=== PATIENT | male | born 1990 | race Caucasian/White ===

== ENCOUNTER 2017-01-14 18:18 | Emergency (ER) | payer BC ==
[2017-01-14 18:45] VITALS: BP 136/69
[2017-01-14] MEDS ORDERED: Ketorolac INJ* 30 MG/ML 1 ML VIAL IM ONE (19:52)
--- NOTE | 2017-01-14 20:01 | UC ---
Back Pain HPI - HPI Summary HPI Summary: Patient lifted a heavy object had a increase in pain on the left lumbar region. leary not radiate, no swelling. Patients ROM is painful in flexion but is full. - History of Current Complaint Chief Complaint: UCBackPain Stated Complaint: BACK PAIN Time Seen by Provider: 01/14/17 19:44 Hx Obtained From: Patient Onset/Duration: Sudden Onset, Lasting Hours Timing: Constant Severity Initially: Moderate Severity Currently: Moderate Back Pain: Is Discrete @ - left lumbar Character: Aching, Spasmodic Aggravating: Movement Alleviating: Nothing - Risk Factors AAA Risk Factors: Negative TAD Risk Factors: Negative - Allergies/Home Medications Allergies/Adverse Reactions: Allergies Allergy/AdvReac Type Severity Reaction Status Date / Time No Known Allergies Allergy Verified 01/14/17 18:45 Home Medications: Home Medications Ibuprofen TAB* [Advil TAB*] 400 mg PO Q6H PRN 01/14/17 [History Confirmed ] PMH/Surg Hx/FS Hx/Imm Hx Previously Healthy: Yes Endocrine History Of: Denies: Diabetes, Thyroid Disease Cardiovascular History Of: Denies: Cardiac Disorders, Hypertension Respiratory History Of: Reports: Asthma Denies: COPD GI/ History Of: Denies: Ulcer - Surgical History Surgical History: Yes Surgery Procedure, Year, and Place: left knee, right leg with metal plate and screws near ankle - Family History Known Family History: Positive: None Negative: Cardiac Disease, Hypertension - Social History Alcohol Use: Occasionally Alcohol Amount: 4-6 Substance Use Type: None Smoking Status (MU): Heavy Every Day Tobacco Smoker Review of Systems Constitutional: Negative Skin: Negative Eyes: Negative ENT: Negative Respiratory: Negative Cardiovascular: Negative Gastrointestinal: Negative Genitourinary: Negative Motor: Negative Neurovascular: Negative Musculoskeletal: Myalgia Neurological: Negative Psychological: Negative All Other Systems Reviewed And Are Negative: Yes Physical Exam Triage Information Reviewed: Yes Appearance: Well-Appearing, Well-Nourished, Pain Distress Vital Signs: Initial Vital Signs Temp 99.1 F 01/14/17 18:35 Pulse 94 01/14/17 18:35 Resp 18 01/14/17 18:35 BP 136/69 01/14/17 18:35 Vital Signs Reviewed: Yes Eye Exam: Normal Eyes: Positive: Conjunctiva Clear ENT Exam: Normal ENT: Positive: Normal ENT inspection, Hearing grossly normal, Pharynx normal, TMs normal Dental Exam: Normal Neck exam: Normal Neck: Positive: Supple, Nontender, No Lymphadenopathy Respiratory Exam: Normal Respiratory: Positive: Chest non-tender, Lungs clear, Normal breath sounds Cardiovascular Exam: Normal Cardiovascular: Positive: RRR, No Murmur, Pulses Normal Abdominal Exam: Normal Abdomen Description: Positive: Nontender, No Organomegaly, Soft Bowel Sounds: Positive: Present Musculoskeletal Exam: Normal Musculoskeletal: Positive: Strength Intact, ROM Intact - range of motion is full pain occurs at end of flexion, hypertonicity noted in left side of lumbar spine. able to stand on one foot at a time. gait is normal and no deformity, or step off noted over the spine. Neurological Exam: Normal Psychological Exam: Normal Skin Exam: Normal Back Pain Course/Dx - Course Course Of Treatment: hx obtained, exam performed, med given for pain, educated on stretches and treatment of muscle strain - Differential Dx/Diagnosis Differential Diagnosis/HQI/PQRI: Herniated Disc, Strain, Sprain Provider Diagnoses: low back pain. warts Discharge - Discharge Plan Condition: Stable Disposition: HOME Patient Education Materials: Muscle Strain (ED), Lower Back Exercises (ED) Referrals: BRIGIDA Garza [Primary Care Provider] - Additional Instructions: Continue with ibuprofen tomorrow as needed for pain. You received a toradol shot , do not take any advil or aleve until 4 am. heat or ice as tolerated Mild stretching and refer to the low back exercises to help relieve the low back pain.
[2017-01-14] MEDS ORDERED: Cyclobenzaprine TAB* 10 MG PO ONE (20:53)
--- NOTE | 2017-01-14 21:07 | RAD ---
INDICATION: Back pain COMPARISON: None TECHNIQUE: Routine PA, lateral, and oblique imaging was performed . FINDINGS: Bones: There are no acute bony findings. Incidental note is made of posterior element fusion defect at S1. There are minor endplate irregularities about T12-L1. There are no significant osteoarthritic findings however. Alignment: Normal Disc spaces: The disc spaces are well-maintained Soft tissues: There are no soft tissue abnormalities. IMPRESSION: A TWO-VIEW EXAMINATION DEMONSTRATES NO ACUTE BONY FINDINGS OR SIGNIFICANT OSTEOARTHRITIC CHANGE
== END 2017-01-14 21:13 | disposition home or self-care (01) ==
LOC: UCCORT 18:18
DX: M54.5 Low back pain (principal); B07.9 Viral wart, unspecified; F17.210 Nicotine dependence, cigarettes, uncomplicated
CPT/HCPCS: 72100; 96372; 99212; A9270-GY; G0463; J1885